=== PATIENT | female | born 1995 ===

== ENCOUNTER 2019-04-29 13:45 | Inpatient (IN) | payer OTHER ==
[~2019-04-29] VITALS: Ht 162.6 cm; Wt 3.2 kg
[2019-05-05] MEDS ORDERED: PRENATAL + DHA1 EAC1 PO (19:37)
[2019-05-08] MEDS ORDERED: CODE1TAB37 PO (09:50)
[2019-05-08] MEDS ORDERED: DOCUSATE SODIU100 MG PO (09:51)
[2019-05-08] MEDS ORDERED: NAPR500T14 PO (09:51)
[2019-05-08] MEDS ORDERED: SIMETHICONE125 M1 PO (09:51)
[2019-05-08] MEDS ORDERED: PROFERRIN-FORT1 EACH PO (10:00)
== END 2019-05-08 13:40 | disposition home or self-care (01) | DRG 788 ==
LOC: O/R 13:45 → LDR 05-05 15:54 → OB/GYN 05-05 15:54
PROVIDERS: ADMIT Obstetrics & Gynecology
PROC: 10907ZC Drainage of Amniotic Fluid, Therapeutic from Products of Conception, Via Natural or Artificial Opening (ICD-10-PCS; 2019-05-05)
PROC: 4A1HXCZ Monitoring of Products of Conception, Cardiac Rate, External Approach (ICD-10-PCS; 2019-05-05)
PROC: 10D00Z1 Extraction of Products of Conception, Low, Open Approach (ICD-10-PCS; principal; 2019-05-05 20:00)
DX: O82 Encounter for cesarean delivery without indication (principal); O76 Abnormality in fetal heart rate and rhythm complicating labor and delivery; Z3A.38 38 weeks gestation of pregnancy; Z37.0 Single live birth